=== PATIENT | male | born 1965 | race Caucasian/White ===

== ENCOUNTER → 2022-01-29 | Emergency (ER) | payer OTHER ==
[~2022-01-29] MED LIST: HYDROCHLOROT12.5 M1 PO; LANTUS100 UNIT; LIPITOR20 M1 PO; LISINOPRIL10 MG PO; METFORMIN HCL500 M1 PO; NOVOLO1 SC
== END | disposition home or self-care (01) | DRG 558 ==
LOC: ED 06:30
DX: M70.21 Olecranon bursitis, right elbow (principal); E11.9 Type 2 diabetes mellitus without complications; F17.200 Nicotine dependence, unspecified, uncomplicated; W01.0XXA Fall on same level from slipping, tripping and stumbling without subsequent striking against object, initial encounter

== ENCOUNTER 2022-01-31 17:46 | Inpatient (IN) | payer MEDICARE, MEDICAID ==
[~2022-01-31] VITALS: Ht 175.3 cm; Wt 118.0 kg
--- NOTE | 2022-01-31 02:00 | NUR ---
56 y/o male patient received from ED with Dx: cellulitis right elbow. O/A to unit, pt awake, alert and oriented x4. Right elbow is swollen, red, tender and warm to touch. Oriented to room, environment and call system. Plan of care reviewed. Call light placed within reach. Will monitor.
--- NOTE | 2022-01-31 18:16 | NUR ---
PT ED RM 4, NO DISTRESS
[2022-01-31 19:13] LABS: HEMATOCRIT 43.3 % (39.0-50.0); IMMATURE GRANULOCYTES 0.1 % (0.0-5.0); MEAN CELL VOLUME 90.8 fL CALC (80.0-100.0); MEAN CORPUSCULAR HGB 31.4 pG CALC (26.0-32.0); MEAN CORPUSCULAR HGB CONC 34.6 g/dL CAL (32.0-36.0); NEUT# 7.68 thou/uL (1.82-7.42); RED BLOOD COUNT 4.77 mill/uL (4.70-6.10); RED CELL DISTRI WIDTH 12.7 % (11.5-15.5)
[2022-01-31 19:21] LABS: ALBUMIN 4.5 g/dL (3.2-5.0); ALKALINE PHOSPHATASE 95 u/l (38-126); ANION GAP 13 (6-22 (CALC)); BUN 9 mg/dL (9-20); BUN/CREATININE RATIO 15 (12-20 (CALC)); CARBON DIOXIDE 27 mmol/l (22-30); CHLORIDE 98 mmol/l (95-108); CREATININE 0.6 mg/dL (0.7-1.3); GFR FOR AFR.AMER. > 60 ML/MIN (>=60 (CALC)); GFR OTHER RACES > 60 ML/MIN (>=60 (CALC)); POTASSIUM 3.9 mmol/l (3.5-5.1); SGOT/AST 22 u/l (17-59); SODIUM 134 mmol/l (137-146)
--- NOTE | 2022-01-31 22:15 | NUR ---
PT. ASLEEP AT THIS TIME. ASSUMED CARE FROM ZAHRA RAMIREZ RN
[2022-01-31 22:31] VITALS: BP 147/74
[2022-01-31 23:00] VITALS: BP 149/78
--- NOTE | 2022-01-31 23:00 | NUR ---
PT. ASLEEP AT THIS TIME. NO C/O VOICED. SWABBED FOR COVID, PT. TO BE ADMITTED
[2022-01-31 23:30] VITALS: BP 160/77
[2022-02-01 00:01] VITALS: BP 160/85
--- NOTE | 2022-02-01 01:00 | NUR ---
PT. ASLEEP NO C/O VOCIED AT THIS TIME
--- NOTE | 2022-02-01 01:45 | NUR ---
REPORT CALLED TO [facility] RE:ADMIT
--- NOTE | 2022-02-01 02:00 | NUR ---
TRANSPORTED TO 287 VIA WC
--- NOTE | 2022-02-01 02:00 | NUR ---
56 Y/O male patient received from ED with Dx: Cellulitis. O/A to unit, patient awake, alert and oriented x4. Right elbow noted to be reddened, swollen and warm to touch. Pt oriented to room, environment and call system. Plan of care reviewed. Call gomes within reach. Will monitor.
[2022-02-01 02:06] VITALS: BP 167/84
[2022-02-01] MEDS ORDERED: LIPITOR20 M1 PO (02:25)
[2022-02-01] MEDS ORDERED: LISINOPRIL10 MG PO (02:26)
[2022-02-01] MEDS ORDERED: HYDROCHLOROT12.5 M1 PO (02:30)
[2022-02-01] MEDS ORDERED: LANTUS100 UNIT (02:32)
[2022-02-01] MEDS ORDERED: METFORMIN HCL500 M1 PO (02:33)
[2022-02-01] MEDS ORDERED: NOVOLO1 SC (02:34)
--- NOTE | 2022-02-01 02:47 | NUR ---
Pt c/o pain to right elbow. Medicated with lortab. Will reassess.
[2022-02-01 03:26] VITALS: BP 150/79
--- NOTE | 2022-02-01 07:02 | NUR ---
Pt stated to decreased pain. Able to sleep for a few hrs.
[2022-02-01 07:53] VITALS: BP 157/92
--- NOTE | 2022-02-01 10:31 | NUR ---
PT RESTINGIN HIGH FOWLERS POSITION. A/OX3 ASSESSMENT AND VS COMPLETE. PT RIGHT ARM SWOLLEN WARM TO TOUCH . PT C/O PAIN . MEDICATION TO BE PROVIDED PER EMAR. IV SITE NOTED. 18G LAC. NOTED. PT DENIES ADDITIONAL NEEDS AT THE TIME ALL SAFETY PRECAUTIONS IN PLACE.
--- NOTE | 2022-02-01 13:12 | NUR ---
PT RESTING IN HIGH FOWLERS POSITION PT RECIEVED ABX ALL SAFETY PRECAUTIONS IN PLACE MRSA SWAB COLLECTED .
--- NOTE | 2022-02-01 14:39 | NUR ---
S: HERSONBOBBI is a 56 M who presents with MYALGIA, ARTHRALGIA, ARM SWELLING He has a history of DIABETES. All medications in patient's chart were reviewed. O: VS: BP 157/92 MMHG , P 87 BPM, RR 21BPM ,T 99.3 F W 55, HT 69 INCHES, Scr 0.6MG/DL ,CrCl= 143.6 A: Blood culture which is PENDING. P: Patient is on ABX PIPERACILLIN SODIUM- TAZOBACTAM VANCOMYCIN Vancomycin ordered for pharmacy to dose. Start Vancomyc 1250MG (25ML) EVERY 8 HOURS. Vancomycin trough is drawn before the 4th dose on FEB 02 @ 03:OOPM Vancomycin goal trough is between <10-15 mcg/ml>. Pharmacy will follow and or advise on antibiotics use as needed.
[2022-02-01 15:53] VITALS: BP 135/69
--- NOTE | 2022-02-01 15:53 | NUR ---
VANCO ABX ADMINISTERED,PT C/O PAIN TOLERATE. DENIES ADDITIONAL NEEDS AT THE TIME ALL SAFETY PRECAUTIONS IN PLACE.
[2022-02-01 19:04] VITALS: BP 148/77
--- NOTE | 2022-02-01 21:21 | NUR ---
PATIENT SITTING UP IN BED-C/O RIGHT ARM PAIN-MEDICATED WITH LORTAB ORDERED. RIGHT ARM IS RED AND SWOLLEN. IVF PATENT AND INFUSING VIA LEFT ARM AT KVO RATE. LUNGS CLEAR. ABD DISTENDED WITH ACTIVE BS-STATES THAT HE HAD BM TODAY. DENIES ANY DIFFICULTY WITH URINATION. NO LE SWELLING-PULSES ARE PALPABLE. SAFETY PRECAUTIONS REINFORCED. CALL LIGHT IN REACH. WILL CONT TO MONITOR.
--- NOTE | 2022-02-02 00:30 | NUR ---
PATIENT RESTING IN BED-TEMP IS 99.0 AT THIS TIME. IV ZOSYN HUNG ORDERED VIA LEFT ARM IV SITE. EYES ARE CLOSED AND RESPS ARE EVEN AND UNLABORED. CALL LIGHT IN REACH. WILL CONT TO MONITOR.
[2022-02-02 04:31] VITALS: BP 155/85
--- NOTE | 2022-02-02 04:45 | NUR ---
PATIENT RESTING IN BED-C/O 10/10 RIGHT ARM PAIN-MEDICATED WITH LORTAB PO. IVF PATENT AND INFUSING VIA LEFT AC SITE AT KVO RATE. SAFETY PRECAUITONS REINFORCED. CALL LIGHT IN REACH. WILL CONT TO MONITOR.
[2022-02-02 05:59] LABS: HEMATOCRIT 39.3 % (39.0-50.0); HEMOGLOBIN 13.3 g/dl (14.0-18.0); IMMATURE GRANULOCYTES 0.1 % (0.0-5.0); MEAN CORPUSCULAR HGB 31.1 pG CALC (26.0-32.0); MEAN CORPUSCULAR HGB CONC 33.8 g/dL CAL (32.0-36.0); NEUT# 7.83 thou/uL (1.82-7.42); RED BLOOD COUNT 4.27 mill/uL (4.70-6.10); RED CELL DISTRI WIDTH 12.5 % (11.5-15.5)
[2022-02-02 07:00] VITALS: BP 129/73
--- NOTE | 2022-02-02 07:42 | NUR ---
PT RESTING IN HIGH FOWLERS POSITION. A/OX3 PT C/O PAIN TO MEDICATED ONCE TIME IS CLEAR TO GIVE PER EMAR. ASSESSMENT AND VS COMPLETED. IV SIT NOTED TO LAC. PT DENIES ADDITIONAL NEEDS AT THE TIME ALLSAFETY PRECAUTIONS IN PLACE.
--- NOTE | 2022-02-02 12:00 | NUR ---
PT TO HAVE ULTRASOUND OF ARM
[2022-02-02 15:00] VITALS: BP 143/75
--- NOTE | 2022-02-02 15:30 | NUR ---
S: HERSONBOBBI is a 56 M who presents with CELLULITIS. He has a history of DIABETES. All medications in patient's chart were reviewed. O: VS: BP 143/75 MMHG, P 80 BPM, RR 19 BPM,T 97.8 F W 118 kg, HT 175.26 CM, Scr= 0.6,CrCl= 176.3 ml/min Vancomycin trough was 9 mcg/ml @ 1425 on 02/02/22 A: Blood culture shows no growth. MRSA surveillance culture is pending. P: Patient is on Zosyn 3.375 GM IV Q6H. Vancomycin ordered for pharmacy to dose. Start Vancomycin 1500 MG IV Q8H. Vancomycin trough is drawn before the 4th dose on 02/03/22 @ 1530 Vancomycin goal trough is between 10-15 mcg/ml. Pharmacy will follow and or advise on antibiotics use as needed.
--- NOTE | 2022-02-02 16:00 | NUR ---
PT DENIES ADDITIONAL NEEDS AT THE TIME SAFETY PRECAUTIONS IN PLACE.
[2022-02-02 19:10] VITALS: BP 151/85
--- NOTE | 2022-02-02 19:10 | NUR ---
PT IN BED, SEMI FOWELERS POSITION. ALERT AND ORIENTATED X3. FACIAL STRUCTURE SYMMETRICAL, EYES PERRL. EXTREMITIES STRONG X4, NO DRIFT NOTED. UPPER RIGHT ARM SWOLLEN, RED AND PAINFUL. IV SITE PATENT, IVF RUNNNING ORDERD. ABDOMEN DISTENDED, NON TENDER WITH ACTIVE BOWEL SOUNDS X4. PT DENIES ANY NEEDS AT THIS TIME. CALL LIGHT IN REACH, ALL SAFETY PRECAUTIONS IN PLACE AT THIS TIME.
--- NOTE | 2022-02-03 | NUR ---
PT IN BED SLEEPING, BREATIHNG EVEN AND NON LABORED. IVF RUNNING PER EMAR. STARTED ANTIBIODICS. PT EASILY AROUSIBLE, FALLS ASLEEP QUICKLY AFTER SAYING NAME. CALL LIGHT IN REACH. ALL SAFETY PRECAUTIONS IN PLACE AT THIS TIME.
[2022-02-03 04:00] VITALS: BP 141/83
--- NOTE | 2022-02-03 04:00 | NUR ---
PT SLEEPING ON LEFT SIDE, RIGHT ARM PROPPED UP ON PILLOW. IVF RUNNING ORDERED. PT BREATHING IS EVEN AND NON LABORED. PT DENIES ANY NEEDS AT THIS TIME. CALL LIGHT IN REACH. ALL SAFETY PRECAUTIONS IN PLACE AT THIS TIME.
--- NOTE | 2022-02-03 04:08 | NUR ---
PT SLEEPING ON RIGHT SIDE. PT EASILY AROUSIBLE, BREATHING UNLABORED. DENIES ANY PAIN, NO SIGNS OF DISCOMFORT. TELE IN PLACE. PT DENIES ANY NEEDS AT THIS TIME. CALL LIGHT IN REACH. ALL SAFETY PRECAUTIONS IN PLACE AT THIS TIME.
[2022-02-03 05:39] LABS: HEMATOCRIT 37.4 % (39.0-50.0); HEMOGLOBIN 12.8 g/dl (14.0-18.0); IMMATURE GRANULOCYTES 0.1 % (0.0-5.0); MEAN CELL VOLUME 91.7 fL CALC (80.0-100.0); MEAN CORPUSCULAR HGB 31.4 pG CALC (26.0-32.0); MEAN CORPUSCULAR HGB CONC 34.2 g/dL CAL (32.0-36.0); NEUT# 6.33 thou/uL (1.82-7.42); RED BLOOD COUNT 4.08 mill/uL (4.70-6.10); RED CELL DISTRI WIDTH 12.3 % (11.5-15.5)
[2022-02-03 06:24] LABS: ALKALINE PHOSPHATASE 79 u/l (38-126); ANION GAP 14 (6-22 (CALC)); BILIRUBIN, TOTAL 0.6 mg/dL (0.0-1.4); BUN 7 mg/dL (9-20); BUN/CREATININE RATIO 12 (12-20 (CALC)); CARBON DIOXIDE 25 mmol/l (22-30); CHLORIDE 103 mmol/l (95-108); CREATININE 0.6 mg/dL (0.7-1.3); GFR FOR AFR.AMER. > 60 ML/MIN (>=60 (CALC)); GFR OTHER RACES > 60 ML/MIN (>=60 (CALC)); POTASSIUM 3.7 mmol/l (3.5-5.1); SGOT/AST 12 u/l (17-59); SODIUM 137 mmol/l (137-146)
[2022-02-03 06:27] LABS: ALBUMIN 3.2 g/dL (3.2-5.0); TOTAL PROTEIN 5.5 g/dL (6.3-8.2)
[2022-02-03 06:42] VITALS: BP 151/87
[2022-02-03 07:05] VITALS: BP 151/87
--- NOTE | 2022-02-03 08:00 | NUR ---
SHIFT CHANGE REPORT, PT AWAKE ALERT AND ORIENTED RESTING IN BED, C/O THROBBING RIGHT ARM PAIN @ 8/10 BUT DOES NOT WANT HIS ORAL ANALGESIC AND WILL WAIT UNITL HE CAN HAVE IV MEDS AGAIN, HE IS ALSO NPO. IVF INFUSING @ 10ML/HR TO SITE IN LAC, RIGHT ARM RED, WARM AND EDEMATOUS, ELEVATED ON PILLOW, ALL NEEDS ADDRESED, CALL DICKINSON IN REACH AND BED LOCKED IN LOWEST POSITION.
[2022-02-03 08:31] VITALS: BP 136/85
--- NOTE | 2022-02-03 12:11 | NUR ---
BEING TRANSPORTED OFF UNIT VIA W/C AT THIS TIME TO RADIOLOGY FOR PROCEDURE.
--- NOTE | 2022-02-03 12:54 | NUR ---
TRANSPORTED BACK FRO PROCEDURE AND SETTLED IN BED, REQUESTING TO HAVE MEAL AT THIS TIME AND ADVISED WILL CONTACT MD FOR ORDER.
[2022-02-03 14:49] VITALS: BP 165/91
[2022-02-03 15:48] VITALS: BP 165/91
[2022-02-04 04:55] VITALS: BP 144/80
[2022-02-04 04:59] LABS: IMMATURE GRANULOCYTES 0.4 % (0.0-5.0); MEAN CELL VOLUME 91.9 fL CALC (80.0-100.0); MEAN CORPUSCULAR HGB 31.5 pG CALC (26.0-32.0); MEAN CORPUSCULAR HGB CONC 34.3 g/dL CAL (32.0-36.0); NEUT# 5.03 thou/uL (1.82-7.42); RED BLOOD COUNT 3.81 mill/uL (4.70-6.10); RED CELL DISTRI WIDTH 12.3 % (11.5-15.5)
--- NOTE | 2022-02-04 09:58 | NUR ---
S: HERSONBOBBI is a 56 M who presents with bursitis of right elbow. He has a history of diabetes. All medications in patient's chart were reviewed. O: VS: BP 136/85mmHg, P 77bpm, RR 18bpm,T 96.7F W: 118Kg, HT175.26cm, Scr=0.6ml/min ,CrCl= 176.3ml/min Vancomycin Trough 02/03@1520: 14 A: Blood culture is pending. Nose culture show no MRSA. Vancomycin trough level is within therapeutic goal range. P: Patient is on Zosyn 3.375g IV Q6H. Vancomycin ordered for pharmacy to dose. Continue Vancomycin 1500mg IV Q8H. Vancomycin trough is drawn before the 4th dose on 02/04/2022 @1530. Vancomycin goal trough level 10 - 15. Pharmacy will follow and or advise on antibiotics use as needed.
[2022-02-04 19:11] VITALS: BP 148/76
[2022-02-05 04:21] VITALS: BP 166/91
[2022-02-05 05:25] LABS: HEMATOCRIT 37.7 % (39.0-50.0); HEMOGLOBIN 12.7 g/dl (14.0-18.0); IMMATURE GRANULOCYTES 0.2 % (0.0-5.0); MEAN CELL VOLUME 92.4 fL CALC (80.0-100.0); MEAN CORPUSCULAR HGB 31.1 pG CALC (26.0-32.0); MEAN CORPUSCULAR HGB CONC 33.7 g/dL CAL (32.0-36.0); NEUT# 3.98 thou/uL (1.82-7.42); RED BLOOD COUNT 4.08 mill/uL (4.70-6.10); RED CELL DISTRI WIDTH 12.1 % (11.5-15.5)
[2022-02-05 06:22] VITALS: BP 156/83
[2022-02-05 08:24] VITALS: BP 156/83
[2022-02-05 09:31] LABS: ANION GAP 15 (6-22 (CALC)); BUN 8 mg/dL (9-20); BUN/CREATININE RATIO 11 (12-20 (CALC)); CARBON DIOXIDE 26 mmol/l (22-30); CHLORIDE 101 mmol/l (95-108); CREATININE 0.7 mg/dL (0.7-1.3); GFR FOR AFR.AMER. > 60 ML/MIN (>=60 (CALC)); GFR OTHER RACES > 60 ML/MIN (>=60 (CALC)); POTASSIUM 4.1 mmol/l (3.5-5.1); SODIUM 139 mmol/l (137-146)
[2022-02-05 14:45] VITALS: BP 166/95
--- NOTE | 2022-02-05 16:08 | NUR ---
PT IS A 56 YOM WHO PRESENTS WITH BURSITIS. WOUND CULTURE SHOWS MRSA. ALL MEDS IN PTS CHART HAVE BEEN REVIEWED. VANCO TROUGH 02/05@ 1520 = 19 MCG/ML GOAL IS 10-15 MCG/ML THEREFORE, CHANGE VANCO DOSE TO 1G IV Q8 STARTING @ 1600. CHECK TROUGH 30 MIN PRIOR TO 4TH DOSE 02/06/22 @ 1530. PREDICTED TROUGH IS 12.8 MCG/ML. PHARMACY WILL CONTINUE TO FOLLOW.
[2022-02-05 19:00] VITALS: BP 158/81
[2022-02-05 19:14] VITALS: BP 158/81
[2022-02-06 04:24] VITALS: BP 154/81
[2022-02-06 04:59] LABS: HEMATOCRIT 36.1 % (39.0-50.0); HEMOGLOBIN 12.3 g/dl (14.0-18.0); IMMATURE GRANULOCYTES 0.2 % (0.0-5.0); MEAN CELL VOLUME 92.8 fL CALC (80.0-100.0); MEAN CORPUSCULAR HGB 31.6 pG CALC (26.0-32.0); MEAN CORPUSCULAR HGB CONC 34.1 g/dL CAL (32.0-36.0); NEUT# 3.93 thou/uL (1.82-7.42); RED BLOOD COUNT 3.89 mill/uL (4.70-6.10); RED CELL DISTRI WIDTH 12.3 % (11.5-15.5)
[2022-02-06 05:07] LABS: ALBUMIN 3.7 g/dL (3.2-5.0); ALKALINE PHOSPHATASE 79 u/l (38-126); ANION GAP 12 (6-22 (CALC)); BUN 10 mg/dL (9-20); BUN/CREATININE RATIO 12 (12-20 (CALC)); CARBON DIOXIDE 28 mmol/l (22-30); CHLORIDE 103 mmol/l (95-108); CREATININE 0.9 mg/dL (0.7-1.3); GFR FOR AFR.AMER. > 60 ML/MIN (>=60 (CALC)); GFR OTHER RACES > 60 ML/MIN (>=60 (CALC)); POTASSIUM 3.6 mmol/l (3.5-5.1); SODIUM 140 mmol/l (137-146)
[2022-02-06 05:08] LABS: BILIRUBIN, TOTAL 0.3 mg/dL (0.0-1.4); SGOT/AST 22 u/l (17-59); TOTAL PROTEIN 6.8 g/dL (6.3-8.2)
[2022-02-06 06:25] VITALS: BP 140/85
[2022-02-06 19:19] VITALS: BP 140/73
[2022-02-07 04:28] VITALS: BP 165/87
[2022-02-07 06:31] LABS: HEMATOCRIT 36.1 % (39.0-50.0); HEMOGLOBIN 12.2 g/dl (14.0-18.0); IMMATURE GRANULOCYTES 0.3 % (0.0-5.0); MEAN CELL VOLUME 92.3 fL CALC (80.0-100.0); MEAN CORPUSCULAR HGB 31.2 pG CALC (26.0-32.0); MEAN CORPUSCULAR HGB CONC 33.8 g/dL CAL (32.0-36.0); NEUT# 4.13 thou/uL (1.82-7.42); RED BLOOD COUNT 3.91 mill/uL (4.70-6.10); RED CELL DISTRI WIDTH 12.2 % (11.5-15.5)
[2022-02-07 07:00] LABS: ANION GAP 13 (6-22 (CALC)); BUN 13 mg/dL (9-20); BUN/CREATININE RATIO 15 (12-20 (CALC)); CARBON DIOXIDE 27 mmol/l (22-30); CHLORIDE 104 mmol/l (95-108); CREATININE 0.9 mg/dL (0.7-1.3); GFR FOR AFR.AMER. > 60 ML/MIN (>=60 (CALC)); GFR OTHER RACES > 60 ML/MIN (>=60 (CALC)); MAGNESIUM 2.1 mg/dL (1.6-2.3); POTASSIUM 3.8 mmol/l (3.5-5.1); SODIUM 139 mmol/l (137-146)
[2022-02-07 07:30] VITALS: BP 148/84
--- NOTE | 2022-02-07 13:29 | NUR ---
PT IS A 56 YOM RECEIVING VANCOMYCIN FOR BURSISITIS. ALL MEDS IN PTS CHART HAVE BEEN REVIEWED. KIDNEY FUNCTION REMAINS UNCHAGED, SCR = 0.9 MG/DL. VANCO TROUGH 02/06/22 @ 1530 = 17 MCG/ML. CONTINUE AT CURRENT DOSE OF 1G IV Q8H, RE-CHECK TROUGH 02/07 @ 1530. GOAL TROUGH IS ~15 MCG/ML
[2022-02-07 17:36] VITALS: BP 154/78
[2022-02-07 20:38] VITALS: BP 139/72
[2022-02-08 04:12] VITALS: BP 130/71
[2022-02-08 05:55] LABS: ANION GAP 13 (6-22 (CALC)); BUN 12 mg/dL (9-20); BUN/CREATININE RATIO 14 (12-20 (CALC)); CARBON DIOXIDE 27 mmol/l (22-30); CHLORIDE 105 mmol/l (95-108); CREATININE 0.9 mg/dL (0.7-1.3); GFR FOR AFR.AMER. > 60 ML/MIN (>=60 (CALC)); GFR OTHER RACES > 60 ML/MIN (>=60 (CALC)); POTASSIUM 3.8 mmol/l (3.5-5.1); SODIUM 141 mmol/l (137-146)
[2022-02-08 06:20] VITALS: BP 146/85
--- NOTE | 2022-02-08 09:14 | NUR ---
S: HERSONBOBBI is a 56 M who presents with bursitis. He has a history of diabetes. All medications in patient's chart were reviewed. O: VS: BP 148/84 mmHg, P 71bpm, RR 20bpm,T 97.7F W 118kg, HT175.26cm, Scr= 0.9, CrCl= 105.8ml/min Trough level on 02/07/22 @1535: 17ug/mL A: Wound culture shows growth of methicilin resistant staph aureus, which is sensitive to vancomycin. Body fluid culture show achromobacter species and methicilin resistant staph aureus growth which is sensitive to vancomycin. P: Patient is on Zosyn 3.375g IV Q6H. Vancomycin ordered for pharmacy to dose. Continue Vancomycin 1g IV Q8H. Vancomycin trough to be drawn before the 4th dose on 02/09/22 @ 1530. Vancomycin goal trough is between 10-20 mcg/ml. Pharmacy will follow and or advise on antibiotics use as needed.
[2022-02-08 15:06] VITALS: BP 152/71
[2022-02-08 19:02] VITALS: BP 156/78
[2022-02-09 04:09] VITALS: BP 152/81
[2022-02-09 06:10] VITALS: BP 158/91
[2022-02-09] MEDS ORDERED: BACTRIM DS1 TAB PO (10:19)
[2022-02-09] MEDS ORDERED: ZYVOX600 MG PO (10:19)
--- NOTE | 2022-02-09 13:53 | NUR ---
Discharge instructions given. Patient verbalizes understanding of same. Discharged in stable condition via Ambulatory to Home with *Other. All belongings sent with pt.
== END 2022-02-09 12:25 | disposition home or self-care (01) | DRG 558 ==
LOC: ED 17:46 → ED-I 22:40 → ED 23:07 → MS2 23:08
PROVIDERS: Emergency Medicine; Internal Medicine; Nurse Practitioner; ADMIT Internal Medicine; ATTEND Internal Medicine
PROC: 0M933ZX Drainage of Right Elbow Bursa and Ligament, Percutaneous Approach, Diagnostic (ICD-10-PCS; principal; 2022-02-03)
PROC: 0J9G0ZZ Drainage of Right Lower Arm Subcutaneous Tissue and Fascia, Open Approach (ICD-10-PCS; 2022-02-05)
PROC: 02HV33Z Insertion of Infusion Device into Superior Vena Cava, Percutaneous Approach (ICD-10-PCS; 2022-02-08)
PROC: B518ZZA Fluoroscopy of Superior Vena Cava, Guidance (ICD-10-PCS; 2022-02-08)
DX: M71.121 Other infective bursitis, right elbow (principal); L03.113 Cellulitis of right upper limb; E11.9 Type 2 diabetes mellitus without complications; I10 Essential (primary) hypertension; E78.5 Hyperlipidemia, unspecified; B95.62 Methicillin resistant Staphylococcus aureus infection as the cause of diseases classified elsewhere; B96.89 Other specified bacterial agents as the cause of diseases classified elsewhere; Z79.4 Long term (current) use of insulin; Z79.84 Long term (current) use of oral hypoglycemic drugs; Z20.822 Contact with and (suspected) exposure to COVID-19
CPT/HCPCS: J0131; J1650; J3370; Q9967